=== PATIENT | female | born 1940 | race Caucasian/White ===

== ENCOUNTER 2025-08-04 11:57 | Emergency (ER) | payer MEDICARE, OTHER ==
[~2025-08-04] VITALS: Ht 165.1 cm; Wt 72.6 kg
[2025-08-04] MEDS ORDERED: PRAMIPEXOLE DIHY1 MG PO (12:21)
[2025-08-04] MEDS ORDERED: LOSARTAN POTASS25 MG PO (12:21)
[2025-08-04] MEDS ORDERED: LEVOTHYROXINE50 MCG PO (12:21)
[2025-08-04] MEDS ORDERED: PRAVASTATIN SOD20 MG (12:21)
[2025-08-04] MEDS ORDERED: HYDROCODONE/APAP 5MG-325MG TAB ONE (12:42)
[2025-08-04] MEDS ORDERED: HYDROCODON-ACE1 EA11 PO (13:18)
[2025-08-04] MEDS: HYDROCODONE/APAP 5MG-325MG TAB PO ONE (13:35)
[2025-08-04 13:40] VITALS: PULSE 63; RESP 14; TEMP 97.4; O2SAT 96
== END 2025-08-04 13:40 | disposition home or self-care (01) ==
LOC: FSED 12:01
DX: M25.562 Pain in left knee (principal); X50.1XXA Overexertion from prolonged static or awkward postures, initial encounter; Y92.89 Other specified places as the place of occurrence of the external cause; I10 Essential (primary) hypertension; E78.5 Hyperlipidemia, unspecified; E03.9 Hypothyroidism, unspecified; G25.81 Restless legs syndrome; M19.09 Primary osteoarthritis, other specified site; Z85.72 Personal history of non-Hodgkin lymphomas
CPT/HCPCS: 99284